=== PATIENT | female | born 1945 | race Caucasian/White ===

== ENCOUNTER 2019-07-15 12:09 | Inpatient (IN) | payer MEDICARE, OTHER ==
[2019-07-15] MEDS ORDERED: Albuterol/Ipratropium NEB.SOL* Albuterol 2.5 MG/Ipratropium 0.5 MG 3 ML INH ONE (12:38)
--- NOTE | 2019-07-15 12:44 | ED ---
Respiratory - HPI Summary HPI Summary: 73-year-old female with a history of asthma presenting with worsening cough, congestion and feeling unwell. Patient states on July 05, she had a cough that has become more productive since Sunday. She also reports myalgias secondary to her cough. Additionally reports fevers at home, chills and sweats. She felt short of breath yesterday, tried her nebulizer. Of note patient had recent travel to [place] and [employer], patient returned on the . She denies sick contacts at that time. Patient also reports some hallucinations at night thinking she was someplace that she wasn't, denies current hallucinations. Patient has past medical history of hypertension. - History of Current Complaint Stated Complaint: GENERAL Time Seen by Provider: 07/15/19 12:13 Hx Obtained From: Patient Onset/Duration: Lasting Days Timing: Constant Character: Cough (Productive) Associated Signs and Symptoms: Fever, SOB, Chills, Diaphoresis, Nasal Congestion - Allergy/Home Medications Allergies/Adverse Reactions: Allergies Allergy/AdvReac Type Severity Reaction Status Date / Time codeine Allergy Severe Airway Verified 07/15/19 13:03 Obstruction erythromycin base AdvReac Vomiting Verified 07/15/19 13:03 polymyxin B AdvReac Swelling Verified 07/15/19 13:03 trimethoprim AdvReac Swelling Verified 07/15/19 13:03 Home Medications: Home Medications Simvastatin [Zocor 40 MG (NF)] 20 mg PO QPM 02/29/16 [History Confirmed 07/15/19 ] Adapalene 0.1% CREAM (NF) [Differin 0.1 % CREAM (NF)] 0.1 % EX BEDTIME PRN 05/22 [History Confirmed 07/15/19] Beclomethasone 80 MCG MDI(NF) [Qvar 80 MCG MDI(NF)] 1 puff INH BID 05/22/18 [ History Confirmed 07/15/19] Beclomethasone Dipropionate [Qnasl] 80 mcg NA BID 05/22/18 [History Confirmed ] Cholecalciferol (Vitamin D3) [Vitamin D3] 1,000 unit PO DAILY 05/22/18 [History Confirmed 07/15/19] Cyclobenzaprine HCl 10 mg PO DAILY PRN 05/22/18 [History Confirmed 07/15/19] Hydrochlorothiazide TAB* [Hydrodiuril TAB*] 25 mg PO DAILY 05/22/18 [History Confirmed 07/15/19] Metformin HCl [Metformin HCl ER] 500 mg PO BID 05/22/18 [History Confirmed 07/14] Omeprazole 20 mg PO DAILY 05/22/18 [History Confirmed 07/15/19] Diclofenac Sodium 20 - 40 drop TOPICAL BID PRN 07/15/19 [History Confirmed 07/14] EPINEPHrine [Epipen Jr] 0.15 mg IM ONCE PRN 07/15/19 [History Confirmed 07/15/19 ] Gabapentin CAP(*) [Neurontin 300 CAP(*)] 300 mg PO BID 07/15/19 [History Confirmed 07/15/19] LevoCETirizine TAB (NF) [Xyzal TAB (NF)] 5 mg PO DAILY 07/15/19 [History Confirmed 07/15/19] Olopatadine 0.2% (NF) [Pataday 0.2% (NF)] 1 - 2 drop BOTH EYES BID PRN 07/15/19 [History Confirmed 07/15/19] Scopolamine 1.5 mg* PATCH* [Transderm-Scop 1.5 mg Patch*] 1 patch TRANSDERM Q72H 07/15/19 [History Confirmed 07/15/19] lisinopriL [Lisinopril] 40 mg PO DAILY 07/15/19 [History Confirmed 07/15/19] metroNIDAZOLE [Metronidazole 0.75 % gel] 1 applic TOPICAL DAILY 07/15/19 [ History Confirmed 07/15/19] PMH/Surg Hx/FS Hx/Imm Hx Endocrine/Hematology History: Denies: Hx Diabetes Cardiovascular History: Reports: Hx Hypertension Denies: Hx Pacemaker/ICD Respiratory History: Reports: Hx Asthma History: Denies: Hx Dialysis, Hx Renal Disease Sensory History: Denies: Hx Hearing Aid Psychiatric History: Denies: Hx Panic Disorder - Surgical History Surgery Procedure, Year, and Place: TIBIAL PLATEAU FX - Lt - ALL HARDWARE REMOVED. Rt ARM - EXTERNAL FIXATION - ALL HARDWARE REMOVED. HYSTERECTOMY. BONE SPURS REMOVED C5-C7. 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 (-) Distressed Skin: Warm, Dry HENT: Normocephalic; Atraumatic Eyes: Conjunctiva normal Neck: Musculoskeletal ROM normal neck. (-) JVD, (-) Stridor, (-) Nuchal rigidity Cardio: Rhythm regular, rate tachycardic, Heart sounds normal; Intact distal pulses; Radial pulses are 2+ and symmetric. (-) Murmur Pulmonary/Chest wall: +bibasilar rhonchi, Effort normal. (-) Respiratory distress, (-) Wheezes, (-) Rales Abd: Soft, (-) tenderness, (-) Distension, (-) Guarding, (-) Rebound Musculoskeletal: (-) Edema Neuro: Alert, Oriented x3 Psych: Mood and affect Normal Triage Information Reviewed: Yes Vital Signs Reviewed: Yes Procedures - Sedation Patient Received Moderate/Deep Sedation with Procedure: No Diagnostics - Laboratory Result Diagrams: 07/15/19 13:20 07/15/19 13:20 Lab Statement: Any lab studies that have been ordered have been reviewed, and results considered in the medical decision making process. - Radiology Chest x-ray Radiology Interpretation Completed By: Radiologist Summary of Radiographic Findings: Low lung volumes with hazy perihilar airspace opacification. Consider further evaluation with chest CT. ED physician has reviewed this report. Disposition - Course Course Of Treatment: 73 y/o F w hx of asthma p/w cough, fevers. - exam w well- appearing female, no acute distress. Lungs with mild bibasilar rhonchi. 93% on room air. Chest x-ray showing bibasilar opacities. Labs notable for no leukocytosis. Given travel history, concern for possible exposure to COVID 19 virus. - [facility] Admit to hospital. D/w infection control and ID who recommend COVID testing given travel history. - regarding episode of AMS likely in setting of fever, GCS 15 here - Diagnoses Provider Diagnoses: Pneumonia, Asthma - Physician Notifications Discussed Care Of Patient With: Neena Alvarenga Time Discussed With Above Provider: 14:08 - Spoke with Dr. Alvarenga who will admit the patient. Discharge ED - Sign-Out/Discharge Documenting (check all that apply): Patient Departure - Discharge Plan Condition: Stable Disposition: ADMITTED TO [facility] - Billing Disposition and Condition Condition: STABLE Disposition: Admitted to [facility] - Attestation Statements Document Initiated by Scribe: Yes Documenting Scribe: Sonja Olivera Provider For Whom Bryant is Documenting (Include Credential): Yarelis Roth MD Scribe Attestation: Sonja Burgess, scribed for Yarelis Roth MD on 07/15/19 at 1619. Scribe Documentation Reviewed: Yes Provider Attestation: The documentation as recorded by the Sonja winslow accurately reflects the service I personally performed and the decisions made by Yarelis oropeza MD Status of Scribe Document: Viewed
[2019-07-15 13:38] LABS: Hematocrit 43 % (35-47); Mean Corpuscular HGB Conc 35 g/dL (31-36); Mean Corpuscular Hemoglobin 30 pg (27-31); Mean Corpuscular Volume 86 fL (80-97); Platelet Count 238 10^3/uL (150-450); Red Blood Count 4.97 10^6 /uL (3.70-4.87); Red Cell Distribution Width 13 % (10-15)
[2019-07-15 13:46] LABS: Influenza A Molecular Negative (Negative); Influenza B Molecular Negative (Negative)
[2019-07-15] MEDS ORDERED: Levofloxacin 750 MG IVPREMIX(* 750 MG/150 ML BAG IVPB ONE (13:47)
[2019-07-15 13:58] LABS: Albumin 4.2 g/dL (3.2-5.2); Albumin/Globulin Ratio 1.4 (1-3); Calcium 9.6 mg/dL (8.6-10.3); EGFR African American 66.1 (>60); EGFR Non-African American 54.7 (>60); Globulin 3.1 g/dL (2-4); Potassium 3.5 mmol/L (3.5-5.0); Total Bilirubin 1.1 mg/dL (0.2-1.0); Total Protein 7.3 g/dL (6.4-8.9)
[2019-07-15 14:27] LABS: ABS Eosinophils 0.1 10^3/ul (0-0.6); ABS Lymphocytes 2.6 10^3/ul (1.0-4.8); ABS Monocytes 0.9 10^3/ul (0-0.8); ABS Neutrophils 3.3 10^3/ul (1.5-7.7); Eosinophil % 1.8 %; Lymphocyte % 37.3 %; Nucleated Red Blood Cells % 0.1
[2019-07-15] MEDS ORDERED: Cyclobenzaprine TAB* 10 MG PO PRN (15:10)
[2019-07-15] MEDS ORDERED: Labetalol IV* 5 MG/ML 20 ML VIAL IV PUSH ONE (15:14)
--- NOTE | 2019-07-15 15:14 | HP ---
History of Present Illness - History of Present Illness Reason for Visit: Cough and fever History of Present Illness: Aurelia Pedroza is a 73 y/o female with history of asthma, HTN, DM, post nasal drip, presenting with fever and worsening cough for 10 days. She came back from a trip to [facility] and [facility] on Jun 20. She mainly spent time with a group of people hiking throughout [place], and she stayed in [facility] briefly for 3 days before taking the flight back to [place]. She started to have bad post nasal drip as well as productive cough since Jul 05. She had some fever and chills in the past 5 days, but she didn't measure. She did have some muscle ache and some headache today due to stuffed nose. She denied SOB, denied abdominal pain, diarrhea. She contacted her PCP, and tried nasal spray and Mucinex but not worsening. She called her friend yesterday, who noted she was coughing badly over phone, therefore advised her to come to hospital. In ED, her sat is 96% under RA. She was given one dose of levofloxacin in ED. She was placed in negative pressure room, COVID-19 and respiratory virus was sent as per protocol. - Past Medical History Past Medical History: 1. DM on metformin only 2. GERD 3. Asthma 4. hypertension 5. Post nasal drip - Past Surgical History Past Surgical History: 1. Tibial plateau fracture 2. right arm external fixation 3. Hysterectomy 4. C5-C7 bone spurs removal - Past Family History Past Family History: Family history of arthritis, hypertension, no particular - Past Social History Past Social History: Patient lives alone. She has some contact with her friend and neighbour after coming back. Non smoker. Occ Etoh use. Patient's health care proxy would be Karo Husseni. She would like to be full code for this admission. Medications: Home Medications Medication Instructions Recorded Confirmed Type Simvastatin [Zocor 40 MG (NF)] 20 mg PO QPM 02/29/16 07/15/19 History Adapalene 0.1% CREAM (NF) 0.1 % EX BEDTIME PRN 05/22/18 07/15/19 History [Differin 0.1 % CREAM (NF)] Beclomethasone 80 MCG MDI(NF) 1 puff INH BID 05/22/18 07/15/19 History [Qvar 80 MCG MDI(NF)] Beclomethasone Dipropionate [Qnasl] 80 mcg NA BID 05/22/18 07/15/19 History Cholecalciferol (Vitamin D3) 1,000 unit PO DAILY 05/22/18 07/15/19 History [Vitamin D3] Cyclobenzaprine HCl 10 mg PO DAILY PRN 05/22/18 07/15/19 History Hydrochlorothiazide TAB* 25 mg PO DAILY 05/22/18 07/15/19 History [Hydrodiuril TAB*] Metformin HCl [Metformin HCl ER] 500 mg PO BID 05/22/18 07/15/19 History Omeprazole 20 mg PO DAILY 05/22/18 07/15/19 History Diclofenac Sodium 20 - 40 drop TOPICAL BID PRN 07/15/19 07/15/19 History EPINEPHrine [Epipen Jr] 0.15 mg IM ONCE PRN 07/15/19 07/15/19 History Gabapentin CAP(*) [Neurontin 300 300 mg PO BID 07/15/19 07/15/19 History CAP(*)] LevoCETirizine TAB (NF) [Xyzal TAB 5 mg PO DAILY 07/15/19 07/15/19 History (NF)] Olopatadine 0.2% (NF) [Pataday 1 - 2 drop BOTH EYES BID PRN 07/15/19 07/15/19 History 0.2% (NF)] Scopolamine 1.5 mg* PATCH* 1 patch TRANSDERM Q72H 07/15/19 07/15/19 History [Transderm-Scop 1.5 mg Patch*] lisinopriL [Lisinopril] 40 mg PO DAILY 07/15/19 07/15/19 History metroNIDAZOLE [Metronidazole 0.75 1 applic TOPICAL DAILY 07/15/19 07/15/19 History % gel] Allergies/Adverse Reactions: Allergies Allergy/AdvReac Type Severity Reaction Status Date / Time codeine Allergy Severe Airway Verified 07/15/19 13:03 Obstruction erythromycin base AdvReac Vomiting Verified 07/15/19 13:03 polymyxin B AdvReac Swelling Verified 07/15/19 13:03 trimethoprim AdvReac Swelling Verified 07/15/19 13:03 Review of Systems - Review of Systems Constitutional: Positive: Fever, Chills. Negative: Sweats, Weakness, Malaise, Other Eyes: Negative: Pain, Vision Change, Conjunctivae Inflammation, Eyelid Inflammation, Redness, Other ENT: Positive: Throat Pain. Negative: Ear Pain, Ear Discharge, Nose Pain, Nose Discharge, Nose Congestion, Mouth Pain, Mouth Swelling, Throat Swelling, Other Respiratory: Positive: Cough, Wheezing. Negative: Dry, Shortness of Breath, Hemoptysis, SOB with Excertion, Pleuritic Pain, Sputum Cardiovascular: Negative: Chest Pain, Palpitations, Orthopnea, Paroxysmal Noc. Dyspnea, Edema, Light Headedness, Other Gastrointestinal: Negative: Nausea, Vomiting, Abdominal Pain, Diarrhea, Constipation, Melena, Hematochezia, Other Genitourinary: Negative: Dysuria, Frequency, Incontinence, Hematuria, Retention , Other Musculoskeletal: Negative: Neck Pain, Shoulder Pain, Arm Pain, Back Pain, Hand Pain, Leg Pain, Foot Pain, Other Skin: Negative: Rash, Lesions, Geovani, Bruising, Other Neurological/Mental Status: Negative: Weakness, Numbness, Incoordination, Change in Speech, Confusion, Seizures, Other Exam Vital Signs: Vital Signs (72 hours) 07/15/19 07/15/19 07/15/19 12:40 12:50 12:52 Temperature 98.3 F Pulse Rate 100 107 Respiratory 20 17 16 Rate Blood Pressure 155/101 155/101 (mmHg) O2 Sat by Pulse 93 93 Oximetry 07/15/19 07/15/19 07/15/19 13:00 13:15 13:24 Temperature Pulse Rate 102 102 95 Respiratory 19 31 13 Rate Blood Pressure 172/98 (mmHg) O2 Sat by Pulse 93 94 98 Oximetry 07/15/19 07/15/19 13:53 14:00 Temperature Pulse Rate 89 93 Respiratory 16 30 Rate Blood Pressure 217/179 (mmHg) O2 Sat by Pulse 96 93 Oximetry Exam: GEN: comfortable sitting on the stregther, NAD HEENT: erythematous pharynx, tonsils not enlarged. Cardiac: S1S2, no murmur Lung: Occasional wheezes. rhonchis heard, clear in general. Abdomen: soft, non tender, BS+ Extremity: no edema, no cyanosis. Neuro: alert and oriented x4. No neurological deficit. Result Diagrams: 07/15/19 13:20 07/15/19 13:20 Diagnostic Imaging: CXR: hazy perihilar airspace opacifications. Assessment/Plan - Assessment/Plan Assessment: Aurelia Pedroza is a 73 y/o female with history of asthma, HTN, DM, post nasal drip, presenting with fever and worsening cough for 10 days duration after a recent travel to [place] and [place], she was found to have perihilar infiltrate in CXR which indicating possible pneumonia. Plan: Patient presented with fever, myalgia,worsening cough with recent travel history to [place] and [place], she will be admitted to negative pressure room in ICU due to concern of COVID-19 with her recent travel history. Case was discussed with infectious disease physician in ED, she met the criteria for COVID-19 testing. Airborne precaution will be administered for this patient. Telemetry needed in view of her hypertensive urgency. 1. Pneumonia - COVID-19 and respiratory virus panel sent out in ED - start IV ceftriaxone and azithromycin - blood cs sent - urine legionella, strep pneumo pending 2. Hypertensive urgency - restart lisinopril and hydrocholorathiazide - iv labetalol prn if BP>180mmhg - check EKG 3. Mild creatinine increase - likely dehydration - IV NS 1L for now 4. Asthma, post nasal drip - not in exacerbation - continue Duoneb, no steroid needed - flonase - symptomatic tx 5. DM - hold off metformin for now - glucose monitoring 5. DVT prophylaxis - ambulatory 6. Full code Attestation Documenting Resident: Jaclyn River Supervising Physician: Francy Mccann Attestation: This service has been performed in part by a resident under the direction of a teaching physician.I, Francy Mccann, performed the service, or was physically present during the critical, or valero portions of the service, furnished by the resident. I participated in the management of the patient.
[2019-07-15] MEDS ORDERED: Albuterol/Ipratropium NEB.SOL* Albuterol 2.5 MG/Ipratropium 0.5 MG 3 ML INH PRN (15:19)
[2019-07-15] MEDS ORDERED: NS 0.9% 1000 ML** 1,000 ML IV SCH (15:30)
[2019-07-15] MEDS: Enoxaparin(*) 40 MG/0.4 ML SYR SUBCUT SCH (17:19)
[2019-07-15] MEDS: metFORMIN* 500 MG TAB PO SCH (17:19)
[2019-07-15] MEDS: guaiFENesin ER TAB 600 MG PO SCH (19:59)
[2019-07-15] MEDS: Gabapentin CAP(*) 300 MG PO SCH (19:59)
[2019-07-15] MEDS: Docusate CAP* 100 MG PO SCH (19:59)
[2019-07-15] MEDS: Mometasone/Formoter 200/5 MDI INH SCH (20:00)
[2019-07-15] MEDS: Ondansetron INJ* 2 MG/ML VIAL IV PRN (20:21)
[2019-07-15 22:38] LABS: Urine Appearance Cloudy; Urine Bilirubin Negative (Negative); Urine Blood Negative (Negative); Urine Color Yellow; Urine Glucose Negative (Negative); Urine Ketones Negative (Negative); Urine Nitrite Negative (Negative); Urine Protein Negative (Negative); Urine Urobilinogen Negative (Negative)
[2019-07-16 07:10] LABS: ABS Eosinophils 0.2 10^3/ul (0-0.6); ABS Lymphocytes 3.2 10^3/ul (1.0-4.8); ABS Monocytes 0.8 10^3/ul (0-0.8); Eosinophil % 3.3 %; Hematocrit 38 % (35-47); Hemoglobin 13.3 g/dL (12.0-16.0); Mean Corpuscular HGB Conc 35 g/dL (31-36); Mean Corpuscular Hemoglobin 30 pg (27-31); Mean Corpuscular Volume 86 fL (80-97); Mean Platelet Volume 8.6 fL (7.4-10.4); Nucleated Red Blood Cells % 0.3; Platelet Count 207 10^3/uL (150-450); Red Blood Count 4.47 10^6 /uL (3.70-4.87); Red Cell Distribution Width 13 % (10-15); White Blood Count 7.3 10^3/uL (3.5-10.8)
[2019-07-16 07:26] LABS: C Reactive Protein 33.26 mg/L (<8.01); Calcium 8.5 mg/dL (8.6-10.3); EGFR African American 83.2 (>60); EGFR Non-African American 68.7 (>60); Potassium 3.5 mmol/L (3.5-5.0)
[2019-07-16] MEDS: Mometasone/Formoter 200/5 MDI INH SCH ×2 (09:07→21:10)
[2019-07-16] MEDS: Fluticasone NASAL SPRAY 50MCG* 16 gm SPRAY BTL BOTH NARES SCH (09:08)
[2019-07-16] MEDS: Lisinopril TAB* 10 MG PO SCH (09:12)
[2019-07-16] MEDS: Pantoprazole TAB * 40 MG TAB PO SCH (09:16)
[2019-07-16] MEDS: Hydrochlorothiazide TAB* 25 MG PO SCH (09:16)
[2019-07-16] MEDS: metFORMIN* 500 MG TAB PO SCH ×2 (09:16→16:02)
[2019-07-16] MEDS: guaiFENesin ER TAB 600 MG PO SCH ×2 (09:16→21:09)
[2019-07-16] MEDS: Gabapentin CAP(*) 300 MG PO SCH ×2 (09:17→21:09)
[2019-07-16] MEDS: Docusate CAP* 100 MG PO SCH ×2 (09:18→21:10)
[2019-07-16] MEDS ORDERED: Albuterol 2.5 MG/3 ML NEB.SOL* (0.083%) INH SCH (13:00)
[2019-07-16] MEDS: methylPREDNISolone SOD 40 MG* 1 ML VIAL IV SCH (13:13)
[2019-07-16] MEDS: Ondansetron INJ* 2 MG/ML VIAL IV PRN (15:06)
[2019-07-16] MEDS ORDERED: Azithromycin 500 mg/250 ml NS 500 MG/250 ML BAG IVPB ONE (15:13)
[2019-07-16] MEDS: cefTRIAXone(*) 1 GM in NS 0.9% 50 ML* 50 ML IVPB SCH (16:02)
[2019-07-16] MEDS: Enoxaparin(*) 40 MG/0.4 ML SYR SUBCUT SCH (16:02)
--- NOTE | 2019-07-16 17:38 | PN ---
Progress Note - Progress Note Date of Service: 07/16/19 Note: Progress Note -- Critical Care 24 hour events/significant events: -admitted to ICU for contact / airborne for possible COVID-19 infection given high risk features -overnight has required intermittnet NC, currnetly on RA -BP stable, HR stable -she states some SOB; cough+, no sputum now -feels well otherwise, no other complaints -exam with diffuse wheezing -remains on airborne and contact; pending still COVID PCR testing -tolerating po intake; otherwise feels relatively ok ROS: negative except for pertinent positives mentioned above Tele: NSR Vitals: Vital Signs Temp 98.1 F 07/16/19 16:04 Pulse 71 07/16/19 16:00 Resp 20 07/16/19 16:00 BP 127/53 07/16/19 16:00 Pulse Ox 97 07/16/19 16:00 Intake & Output 07/15/19 07/16/19 07/16/19 18:59 06:59 18:59 Intake Total 150 1803 960 Output Total 850 500 Balance 150 953 460 Weight 97.568 kg Intake: IV Fluids 150 1323 NS (0.9%) 1323 Oral 480 960 Output: Urine 850 500 Other: # Voids 1 O2/Vent: RA Infusions: heplock Medications: Acetaminophen (Tylenol Tab*) 650 mg PO Q6H PRN PRN Reason: PAIN - MILD Albuterol (Ventolin 2.5 Mg/3 Ml Neb.Avelina*) 2.5 mg INH Q4H [facility] Cyclobenzaprine HCl (Flexeril Tab*) 10 mg PO DAILY PRN PRN Reason: Muscle spasm Docusate Sodium (Colace Cap*) 100 mg PO BID [facility] Last Admin: 07/16/19 09:18 Dose: Not Given Enoxaparin Sodium (Lovenox(*)) 40 mg SUBCUT Q24H [facility] Last Admin: 07/16/19 16:02 Dose: 40 mg Fluticasone Propionate (Flonase Nasal [place] 50mcg*) 2 spray BOTH NARES DAILY [facility] Last Admin: 07/16/19 09:08 Dose: 2 spray Gabapentin (Neurontin Cap(*)) 300 mg PO BID [facility] Last Admin: 07/16/19 09:17 Dose: 300 mg Guaifenesin (Mucinex*) 600 mg PO BID [facility] Last Admin: 07/16/19 09:16 Dose: 600 mg Hydrochlorothiazide (Hydrodiuril Tab*) 25 mg PO DAILY [facility] Last Admin: 07/16/19 09:16 Dose: 25 mg Ceftriaxone Sodium 1 gm/ (Sodium Chloride) 50 mls @ 100 mls/hr IVPB Q24H [facility] Last Admin: 07/16/19 16:02 Dose: 100 mls/hr Lisinopril (Prinivil Tab*) 40 mg PO DAILY [facility] Last Admin: 07/16/19 09:12 Dose: 40 mg Metformin HCl (Glucophage*) 500 mg PO 0800,1700 [facility] Last Admin: 07/16/19 16:02 Dose: 500 mg Methylprednisolone Sodium Succinate (Solu-Medrol 40 Mg) 40 mg IV Q12H [facility] Last Admin: 07/16/19 13:13 Dose: 40 mg Mometasone Furoate/Formoterol Fumar (Dulera 200/5 Mdi*) 2 puff INH BID [facility] Last Admin: 07/16/19 09:07 Dose: 2 puff Ondansetron HCl (Zofran Inj*) 4 mg IV Q6H PRN PRN Reason: NAUSEA Last Admin: 07/16/19 15:06 Dose: 4 mg Pantoprazole Sodium (Protonix Tab*) 40 mg PO DAILY [facility] Last Admin: 07/16/19 09:16 Dose: 40 mg Physical Exam: Constitutional: awake, alert, no distress, no diaphoresis Head: normocephalic, atraumatic Eyes: no pallor, no icterus ENT: moist mucous membranes Neck: soft, supple, no jvd, no stridor CVS: normal rate, regular, no murmur Chest/Resp: bilateral air entry, no rhales, Bilateral diffuse wheeze+, no rhonchi, no acc muscle use Abdomen/GI: soft, nontender, nondistended, BS+ Ext/Msk: warm, pulses+, no edema Skin: intact, warm Neuro: awake, alert, orientedx3, moving all extremities, no gross focal deficit Psych: normal affect Labs: Laboratory Results - last 24 hr 07/15/19 07/15/19 07/16/19 13:20 15:26 06:00 WBC RBC Hgb Hct MCV MCH MCHC RDW Plt Count MPV Neut % (Auto) Lymph % (Auto) Burt % (Auto) Eos % (Auto) Baso % (Auto) Absolute Neuts (auto) Absolute Lymphs (auto) Absolute Monos (auto) Absolute Eos (auto) Absolute Basos (auto) Absolute Nucleated RBC Nucleated RBC % Sodium 135 Potassium 3.5 Chloride 101 Carbon Dioxide 23 Anion Gap 11 BUN 18 Creatinine 0.82 Est GFR ( Amer) 83.2 Est GFR (Non-Af Amer) 68.7 BUN/Creatinine Ratio 22.0 H Glucose 138 H Hemoglobin A1c 6.7 H Calcium 8.5 L C-Reactive Protein 33.26 H Urine Color Yellow Urine Appearance Cloudy Urine pH 5.0 Ur Specific [place] 1.010 Urine Protein Negative Urine Ketones Negative Urine Blood Negative Urine Nitrate Negative Urine Bilirubin Negative Urine Urobilinogen Negative Ur Leukocyte Esterase Negative Urine Glucose Negative 07/16/19 06:50 WBC 7.3 RBC 4.47 Hgb 13.3 Hct 38 MCV 86 MCH 30 MCHC 35 RDW 13 Plt Count 207 MPV 8.6 Neut % (Auto) 40.7 Lymph % (Auto) 44.0 Burt % (Auto) 11.5 Eos % (Auto) 3.3 Baso % (Auto) 0.5 Absolute Neuts (auto) 3.0 Absolute Lymphs (auto) 3.2 Absolute Monos (auto) 0.8 Absolute Eos (auto) 0.2 Absolute Basos (auto) 0.0 Absolute Nucleated RBC 0.0 Nucleated RBC % 0.3 Sodium Potassium Chloride Carbon Dioxide Anion Gap BUN Creatinine Est GFR ( Amer) Est GFR (Non-Af Amer) BUN/Creatinine Ratio Glucose Hemoglobin A1c Calcium C-Reactive Protein Urine Color Urine Appearance Urine pH Ur Specific [place] Urine Protein Urine Ketones Urine Blood Urine Nitrate Urine Bilirubin Urine Urobilinogen Ur Leukocyte Esterase Urine Glucose Imaging: CXR 07/15 - no acute infiltrates noted; some question of perihilar infiltrate but similar as yesterday Assessment: 73y F w/pmhx of asthma, HTN, DM; presented with 10 days of fever, cough, sputum, headaches+, some generalized aches+. history relative for arrival from [place] 15 days before that. -Acute asthma exaccerbation -Hypoxia -Febrile illness, r/o viral respiratory pathology; r/o COVID19 infection HTN DM Plan: Neuro- -alert, awake ; Delirium prec; avoid BDZ CVS- -BP and HR Stable -HTN - cont hctz, lisinopril -given IVF yesterday, now on heplock -Maintain MAP>65 Resp- -on RA now, was on NC 1-2L, but off; last sats 92-98%, RR teens -bilateral diffuse wheezing+, no acc muscle use -start solumedrol 40mg iv bid and change nebs to q4h albuterol RTC -sputum culture if any -new SHIVANI guidelines changed to droplet and contact (unless patient is aerosolizing) -Wean Fio2 to keep sat>92% -Bronchodilators PRN ID- afebrile. wbc normal. -pending viral pathogen panel and COVID testing -noted CRP 33; no lymphopenia noted; no thrombocytopenia -on empiric CAP coverage with CTX/Azithromycin (day#2) GI- -Nutrition: cardiac diet/diabetic diet -GI prophylaxis - start h2b while on steroids Renal- -strict I/O, replete to keep K>4, Mg>2 -plata as indicated Heme- hg stable, plt stable Endo-Maintain BG<200, insulin protocol as needed; cont metformin Musculsk- pressure ulcer prophylaxis. oob to chair as tolerated, ambulate as tolerated Wounds- none Nutrition- diabetic/cardiac diet DVT prophylaxis: none indicated GI prophylaxis: h2b Central Line: no Arterial Line: no Plata Cathetor: no Disposition: medical floor; pending covid testing Patient clinical status: guarded Code Status: full code discussed current plan with patient. she is very pleasant. Total Critical Care time is 35 minutes, excluding procedures/teaching Km Villalta MD Mock Up Builder (Electronically Signed)
--- NOTE | 2019-07-16 17:48 | CONSULT ---
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 He was a witnessed collapse by house keeper, who started CPR, called EMS, state troopers arrive and gave 1 shock and continued CPR, EMS arrived and cont CPR with 2 epi with ROSC. Brought to ER and intubated. EKG demonstrated NSR with inferior ST elevations. STEMI called, taken to photographic laboratory technician, found to have occluded mid-RCA. PCI performed with 3 stents, discussed intraop findings with cardiology , some distal disease still present in RCA, no sig disease in LAD at this time. Given brillinta/asa. He is now in ICU, intubated, did not wake post code, on propofol now, BP stable. Given criteria for cardiac arrest he is started on Therapeutic hypothermia protocol. CT brain done showing no acute findings, areas of encephalomalacia+. 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 Allergies: NKDA Home Medications: Simvastatin [Zocor 40 MG (NF)] 20 mg PO QPM 02/29/16 [History Confirmed 07/15/19 ] Adapalene 0.1% CREAM (NF) [Differin 0.1 % CREAM (NF)] 0.1 % EX BEDTIME PRN 05/22 [History Confirmed 07/15/19] Beclomethasone 80 MCG MDI(NF) [Qvar 80 MCG MDI(NF)] 1 puff INH BID 05/22/18 [ History Confirmed 07/15/19] Beclomethasone Dipropionate [Qnasl] 80 mcg NA BID 05/22/18 [History Confirmed ] Cholecalciferol (Vitamin D3) [Vitamin D3] 1,000 unit PO DAILY 05/22/18 [History Confirmed 07/15/19] Cyclobenzaprine HCl 10 mg PO DAILY PRN 05/22/18 [History Confirmed 07/15/19] Hydrochlorothiazide TAB* [Hydrodiuril TAB*] 25 mg PO DAILY 05/22/18 [History Confirmed 07/15/19] Metformin HCl [Metformin HCl ER] 500 mg PO BID 05/22/18 [History Confirmed 07/14] Omeprazole 20 mg PO DAILY 05/22/18 [History Confirmed 07/15/19] Diclofenac Sodium 20 - 40 drop TOPICAL BID PRN 07/15/19 [History Confirmed 07/14] EPINEPHrine [Epipen Jr] 0.15 mg IM ONCE PRN 07/15/19 [History Confirmed 07/15/19 ] Gabapentin CAP(*) [Neurontin 300 CAP(*)] 300 mg PO BID 07/15/19 [History Confirmed 07/15/19] LevoCETirizine TAB (NF) [Xyzal TAB (NF)] 5 mg PO DAILY 07/15/19 [History Confirmed 07/15/19] Olopatadine 0.2% (NF) [Pataday 0.2% (NF)] 1 - 2 drop BOTH EYES BID PRN 07/15/19 [History Confirmed 07/15/19] Scopolamine 1.5 mg* PATCH* [Transderm-Scop 1.5 mg Patch*] 1 patch TRANSDERM Q72H 07/15/19 [History Confirmed 07/15/19] lisinopriL [Lisinopril] 40 mg PO DAILY 07/15/19 [History Confirmed 07/15/19] metroNIDAZOLE [Metronidazole 0.75 % gel] 1 applic TOPICAL DAILY 07/15/19 [ History Confirmed 07/15/19] Tele: NSR Vitals: Vital Signs Temp 98.1 F 07/16/19 16:04 Pulse 71 07/16/19 16:00 Resp 20 07/16/19 16:00 BP 127/53 07/16/19 16:00 Pulse Ox 97 07/16/19 16:00 Intake & Output 07/15/19 07/16/19 07/16/19 18:59 06:59 18:59 Intake Total 150 1803 960 Output Total 850 500 Balance 150 953 460 Weight 97.568 kg Intake: IV Fluids 150 1323 NS (0.9%) 1323 Oral 480 960 Output: Urine 850 500 Other: # Voids 1 O2/Vent: AC 14/400/+5/60% Infusions: propofol, +/- levophed, NS infusion Current Medications: Acetaminophen (Tylenol Tab*) 650 mg PO Q6H PRN PRN Reason: PAIN - MILD Albuterol (Ventolin 2.5 Mg/3 Ml Neb.Avelina*) 2.[address] [facility] Cyclobenzaprine HCl (Flexeril Tab*) 10 mg PO DAILY PRN PRN Reason: Muscle spasm Docusate Sodium (Colace Cap*) [address] [facility] Last Admin: 07/16/19 09:18 Dose: Not Given Enoxaparin Sodium (Lovenox(*)) [address] [facility] Last Admin: 07/16/19 16:02 Dose: 40 mg Famotidine (Pepcid Tab*) [address] [facility] Fluticasone Propionate (Flonase Nasal [place] 50mcg*) 2 [address]ES DA[address] [facility] Last Admin: 07/16/19 09:08 Dose: 2 spray Gabapentin (Neurontin Cap(*)) [address] [facility] Last Admin: 07/16/19 09:17 Dose: 300 mg Guaifenesin (Mucinex*) [address] [facility] Last Admin: 07/16/19 09:16 Dose: 600 mg Hydrochlorothiazide (Hydrodiuril Tab*) [address] [facility] Last Admin: 07/16/19 09:16 Dose: 25 mg Ceftriaxone Sodium 1 gm/ (Sodium Chloride) 50 mls @ 100 mls/hr IVPB Q24H [facility] Last Admin: 07/16/19 16:02 Dose: 100 mls/hr Lisinopril (Prinivil Tab*) [address] [facility] Last Admin: 07/16/19 09:12 Dose: 40 mg Metformin HCl (Glucophage*) 500 mg PO 0800,1700 [facility] Last Admin: 07/16/19 16:02 Dose: 500 mg Methylprednisolone Sodium Succinate (Solu-Medrol 40 Mg) [address] [facility] Last Admin: 07/16/19 13:13 Dose: 40 mg Mometasone Furoate/Formoterol Fumar (Dulera 200/5 Mdi*) [address] [facility] Last Admin: 07/16/19 09:07 Dose: 2 puff Ondansetron HCl (Zofran Inj*) 4 mg IV Q6H PRN PRN Reason: NAUSEA Last Admin: 07/16/19 15:06 Dose: 4 mg Pantoprazole Sodium (Protonix Tab*) [address] [facility] Last Admin: 07/16/19 09:16 Dose: 40 mg Physical Exam: Constitutional: intubated, unresponsive, no distress, no diaphoresis Head: normocephalic, atraumatic Eyes: no pallor, no icterus ENT: moist mucous membranes Neck: soft, supple, no jvd CVS: normal rate, regular, no murmur Chest/Resp: bilateral air entry, no rhales, no wheeze, + rhonchi on left, no acc muscle use Abdomen/GI: soft, nondistended, BS+ Ext/Msk: warm, pulses+, no edema Skin: intact, warm Neuro: intubated, unresponsive/sedated, pupils reactive bilaterally, cough+, gag +; limited exam Psych: unable to assess/intubated Labs: Laboratory Results - last 24 hr 07/15/19 07/16/19 07/16/19 15:26 06:00 06:50 WBC 7.3 RBC 4.47 Hgb 13.3 Hct 38 MCV 86 MCH 30 MCHC 35 RDW 13 Plt Count 207 MPV 8.6 Neut % (Auto) 40.7 Lymph % (Auto) 44.0 [place] % (Auto) 11.5 Eos % (Auto) 3.3 Baso % (Auto) 0.5 Absolute Neuts (auto) 3.0 Absolute Lymphs (auto) 3.2 Absolute Monos (auto) 0.8 Absolute Eos (auto) 0.2 Absolute Basos (auto) 0.0 Absolute Nucleated RBC 0.0 Nucleated RBC % 0.3 Sodium 135 Potassium 3.5 Chloride 101 Carbon Dioxide 23 Anion Gap 11 BUN 18 Creatinine 0.82 Est GFR ( Amer) 83.2 Est GFR (Non-Af Amer) 68.7 BUN/Creatinine Ratio 22.0 H Glucose 138 H Calcium 8.5 L C-Reactive Protein 33.26 H Urine Color Yellow Urine Appearance Cloudy Urine pH 5.0 Ur Specific [place] 1.010 Urine Protein Negative Urine Ketones Negative Urine Blood Negative Urine Nitrate Negative Urine Bilirubin Negative Urine Urobilinogen Negative Ur Leukocyte Esterase Negative Urine Glucose Negative Imaging: brain ct 07/15 - no acute findings; encephalomalacia chronic+ cxr 07/15 - ett above nehemias; ogt in place; left sided haziness++ Assessment: 73y M w/pmhx of DM, HTN, WPW, prior history of prostate surgery complicated by 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 He was a witnessed collapse by house keeper, who started CPR, called EMS, state troopers arrive and gave 1 shock and continued CPR, EMS arrived and cont CPR with 2 epi with ROSC. Brought to ER and intubated. EKG demonstrated NSR with inferior ST elevations. STEMI called, taken to photographic laboratory technician, found to have occluded mid-RCA. PCI performed with 3 stents, discussed intraop findings with cardiology , some distal disease still present in RCA, no sig disease in LAD at this time. Given brillinta/asa. He is now in ICU, intubated, did not wake post code, on propofol now, BP stable. Given criteria for cardiac arrest he is started on Therapeutic hypothermia protocol. CT brain done showing no acute findings, areas of encephalomalacia+. -VT/VF out of hospital arrest -STEMI of RCA; s/p PCI x3 to mRCA 07/15 -Acute hypoxix respiratory failure, int 07/15 -SETH -Shock liver -metabolic acidosis -possible aspiration pneumonia of left lung -Encephalopathy -upper GI bleed DM HTN h/o WPW h/o prior Right MCA CVA with left deficit seizure disorder Plan: Neuro- -s/p cardiac arrest, not responsive post ROSC; meets criteria for TTM -brain ct 07/15 - no acute findings; chronic encephalomalacia+ -start TTM, goal temp 33C for now -neuro consult after warming -daily neurochecks -cont propofol for sedation; fentanyl and precedex for shivering -h/o Right MCA CVA - chronic left residual weakness; has contractures of upper ext -seizure disorder - cont lamictal -hold sedatives and other anxiety meds -cont baclofen for spasms -Delirium prec; avoid BDZ CVS- -VT/VF arrest - no further arrhythmias, no antiarrhythmics needs, follow tele -STEMI RCA; s/p PCI - some left over residual disease; cont DAPT/statin -trend trop, ekgs, cks -BP stable, no pressors needed currently -follow urine output, cont IVF -TTE reviewed - thick LV, intact function it appears; no effusion, small cavity ; some mild RV dysfunction noted only -HTN - hold antihypertensives; noted to be on clonidine/coreg/norvasc/ lisinopril at home -h/o WPW - monitoring -Titrate Pressors to Maintain MAP>65 Resp- -intubated on AC 60%; abg reviewed -CXR 07/15 with left sided haziness -possible periarrest aspiration; send sputum cx; start empiric asp abx -abg q6h -cxr tomorrow -no sig secretions -Wean Fio2 to keep sat>92% -Bronchodilators PRN, Aspiration prec, Pulmonary Toilet -VAP bundle ID- afebrile, wbc 16 on arrival. -CXR 07/15 with left haziness+ -high risk for aspiration; will start empiric asp coverage with zosyn (day#1) -sent blood and urine cx as part of sepsis/hypothermia protocol GI- -NPO -coffee ground and dark red from OGT+; will lavage. possible GI bleed from arrest/stress/AC/antiplatelets. -h/o PPI at home; previous PUD? -start PPI infusion -trend h/h q6h Renal- -SETH, suspect this to be from ischemic ATN/hypoperfusion from cardiac arrest -no obstruction, plata in place, making urine -metabolic acidosis+; likely from elevated LA and hypoperfusion; improving, will given 3 Nabicarb pushes -cont IVF NS 125cc/hr; some underfilling of cavity on ECHO -hyperkalemia - last K 5.8; will given bicarb; kayexelate PO q12h x2 doses; follow BMP; calcium gluconate 3gm iv x1 -bmp q4h -strict I/O, replete to keep K>4, Mg>2 -plata as indicated Heme- -hg stable -plt okay -cont DAPT for coronary stents -ptts/inr a few hours after procedure are slightly elevated but no changes to be done; no transfusion indicated. -heparin sq q8h tomorrow to be started once PTT improved Endo- Maintain BG<200, insulin protocol as needed -check tsh and hba1b Musculsk- pressure ulcer prophylaxis. Bedrest. Wounds- none Nutrition- NPO DVT prophylaxis: SCD GI prophylaxis: ppi Central Line: left fem tlc/cooling cath 07/15 Arterial Line: right fem 07/15 Plata Cathetor: yes 07/15 Disposition: Admit to ICU; Expected LOS>2 midnights; Patient requires Critical Care/ICU for cardiac arrest, encephalopathy, stemi, therapeutic hypothermia Patient Clinical Status: guarded, critical Code Status: full code will need to find out if any HCP or next of kin who patient may have assigned to assist in making decisions. Noted that daughter may have been distanced from him for years. Total Critical Care time is 90 minutes, excluding procedures/teaching Km Villalta MD [employer] (Electronically Signed)
[2019-07-16] MEDS: Albuterol 2.5 MG/3 ML NEB.SOL* (0.083%) INH SCH ×2 (19:20→22:56)
[2019-07-16] MEDS: Famotidine TAB* 20 MG PO SCH (21:10)
[2019-07-17] MEDS: methylPREDNISolone SOD 40 MG* 1 ML VIAL IV SCH ×2 (01:39→13:02)
[2019-07-17] MEDS: Albuterol 2.5 MG/3 ML NEB.SOL* (0.083%) INH SCH ×6 (01:41→21:36)
[2019-07-17] MEDS: Pantoprazole TAB * 40 MG TAB PO SCH (08:24)
[2019-07-17] MEDS: Hydrochlorothiazide TAB* 25 MG PO SCH (08:24)
[2019-07-17] MEDS: Gabapentin CAP(*) 300 MG PO SCH ×2 (08:24→20:12)
[2019-07-17] MEDS: Acetaminophen TAB* 325 MG PO PRN (08:25)
[2019-07-17] MEDS: guaiFENesin ER TAB 600 MG PO SCH ×2 (08:25→20:12)
[2019-07-17] MEDS: Docusate CAP* 100 MG PO SCH ×2 (08:25→20:13)
[2019-07-17] MEDS: Lisinopril TAB* 10 MG PO SCH (08:25)
[2019-07-17] MEDS: Famotidine TAB* 20 MG PO SCH ×2 (08:25→20:12)
[2019-07-17] MEDS: metFORMIN* 500 MG TAB PO SCH ×2 (08:26→16:25)
[2019-07-17] MEDS: Fluticasone NASAL SPRAY 50MCG* 16 gm SPRAY BTL BOTH NARES SCH (08:26)
[2019-07-17] MEDS: Mometasone/Formoter 200/5 MDI INH SCH ×2 (08:26→21:36)
--- NOTE | 2019-07-17 11:53 | PN ---
Progress Note - Progress Note Date of Service: 07/17/19 Note: Progress Note -- Critical Care 24 hour events/significant events: -awake, alert, walking around in room, feels better -cough+, no sputum -on intermittent NC overnight 1-2L , currently on RA, sats low 90s, RR teens, speaking full sentences -overnight she has some desaturation while sleeping; no snoring noted or apnic episodes -noted this morning a call from outside lab with humanmetapneumo virus+ on panel ROS: negative except for pertinent positives mentioned above Tele: NSR Vitals: Vital Signs Temp 97.2 F 07/17/19 01:47 Pulse 83 07/17/19 09:00 Resp 33 07/17/19 09:00 BP 128/90 07/17/19 08:22 Pulse Ox 93 07/17/19 09:00 Intake & Output 07/16/19 07/17/19 07/17/19 18:59 06:59 18:59 Intake Total 1440 120 Output Total 500 Balance 940 120 Intake: Oral 1440 120 Output: Urine 500 O2/Vent: RA Infusions: heplock Medications: Acetaminophen (Tylenol Tab*) 650 mg PO Q6H PRN PRN Reason: PAIN - MILD Last Admin: 07/17/19 08:25 Dose: 650 mg Albuterol (Ventolin 2.5 Mg/3 Ml Neb.Avelina*) 2.5 mg INH Q4H [facility]PL[facility] Last Admin: 07/17/19 08:24 Dose: 2.5 mg Cyclobenzaprine HCl (Flexeril Tab*) 10 mg PO DAILY PRN PRN Reason: Muscle spasm Docusate Sodium (Colace Cap*) 100 mg PO BID REPLACED BY [facility] Last Admin: 07/17/19 08:25 Dose: 100 mg Enoxaparin Sodium (Lovenox(*)) 40 mg SUBCUT Q24H REPLACED [facility] Last Admin: 07/16/19 16:02 Dose: 40 mg Famotidine (Pepcid Tab*) 20 mg PO BID REPLACED BY [facility] Last Admin: 07/17/19 08:25 Dose: 20 mg Fluticasone Propionate (Flonase Nasal [place] 50mcg*) 2 spray BOTH NARES DAILY REPLACED BY [facility] Last Admin: 07/17/19 08:26 Dose: 2 spray Gabapentin (Neurontin Cap(*)) 300 mg PO BID REPLACED BY [facility] Last Admin: 07/17/19 08:24 Dose: 300 mg Guaifenesin (Mucinex*) 600 mg PO BID REPLACED BY [facility] Last Admin: 07/17/19 08:25 Dose: 600 mg Hydrochlorothiazide (Hydrodiuril Tab*) 25 mg PO DAILY REPLACED BY [facility] Last Admin: 07/17/19 08:24 Dose: 25 mg Ceftriaxone Sodium 1 gm/ (Sodium Chloride) 50 mls @ 100 mls/hr IVPB Q24H REPLACED [facility] Last Admin: 07/16/19 16:02 Dose: 100 mls/hr Lisinopril (Prinivil Tab*) 40 mg PO DAILY REPLACED BY [facility] Last Admin: 07/17/19 08:25 Dose: 40 mg Metformin HCl (Glucophage*) 500 mg PO 0800,1700 REPLACED BY [facility] Last Admin: 07/17/19 08:26 Dose: 500 mg Methylprednisolone Sodium Succinate (Solu-Medrol 40 Mg) 40 mg IV Q12H REPLACED BY [facility] Last Admin: 07/17/19 01:39 Dose: 40 mg Mometasone Furoate/Formoterol Fumar (Dulera 200/5 Mdi*) 2 puff INH BID REPLACED BY [facility] Last Admin: 07/17/19 08:26 Dose: 2 puff Ondansetron HCl (Zofran Inj*) 4 mg IV Q6H PRN PRN Reason: NAUSEA Last Admin: 07/16/19 15:06 Dose: 4 mg Pantoprazole Sodium (Protonix Tab*) 40 mg PO DAILY REPLACED BY [facility] Last Admin: 07/17/19 08:24 Dose: 40 mg Physical Exam: Constitutional: awake, alert, no distress, no diaphoresis Head: normocephalic, atraumatic Eyes: no pallor, no icterus ENT: moist mucous membranes Neck: soft, supple, no jvd, no stridor CVS: normal rate, regular, no murmur Chest/Resp: bilateral air entry, no rhales, Bilateral diffuse wheeze+ but less than yesterday, no rhonchi, no acc muscle use Abdomen/GI: soft, nontender, nondistended, BS+ Ext/Msk: warm, pulses+, no edema Skin: intact, warm Neuro: awake, alert, orientedx3, moving all extremities, no gross focal deficit Psych: normal affect Labs: none today Imaging: CXR 07/15 - no acute infiltrates noted; some question of perihilar infiltrate but similar as yesterday cxr / - no acute infiltrates Assessment: 73y F w/pmhx of asthma, HTN, DM; presented with 10 days of fever, cough, sputum, headaches+, some generalized aches+. history relative for arrival from [place] 15 days before that. -Acute asthma exaccerbation -Hypoxia -Febrile illness, r/o viral respiratory pathology; r/o COVID19 infection HTN DM Plan: Neuro- -alert, awake ; Delirium prec; avoid BDZ CVS- -BP and HR Stable -HTN - cont hctz, lisinopril -heplock IVF -Maintain MAP>65 Resp- -on RA, sometimes NC, was on NC 1-2L; last sats 92-98%, RR <20 -bilateral diffuse wheezing+, bettter today, no acc muscle use -cont solumedrol 40mg iv bid and nebs to q4h albuterol RTC -sputum culture if any -new SHIVANI guidelines changed to droplet and contact (unless patient is aerosolizing) -RVP with human metapneumovirus+; pending covid19 PCR still -Wean Fio2 to keep sat>92% -Bronchodilators PRN ID- afebrile. wbc normal. -RVP with human metapneumovirus+; pending covid19 PCR still -noted CRP 33; no lymphopenia noted; no thrombocytopenia -on empiric CAP coverage with CTX (day#3), d/c azithro GI- -Nutrition: cardiac diet/diabetic diet -GI prophylaxis - h2b while on steroids Renal- -strict I/O, replete to keep K>4, Mg>2 -plata as indicated Heme- hg stable, plt stable Endo-Maintain BG<200, insulin protocol as needed; cont metformin Musculsk- pressure ulcer prophylaxis. oob to chair as tolerated, ambulate as tolerated Wounds- none Nutrition- diabetic/cardiac diet DVT prophylaxis: enoxaparin GI prophylaxis: h2b Central Line: no Arterial Line: no Plata Cathetor: no Disposition: medical floor; pending covid testing Patient clinical status: guarded Code Status: full code discussed current plan with patient. she is very pleasant. Total Critical Care time is 30 minutes, excluding procedures/teaching Km Villalta MD Faculty Member (Electronically Signed)
[2019-07-17] MEDS: cefTRIAXone(*) 1 GM in NS 0.9% 50 ML* 50 ML IVPB SCH (15:41)
[2019-07-17] MEDS: Ondansetron INJ* 2 MG/ML VIAL IV PRN (15:41)
[2019-07-17] MEDS: Enoxaparin(*) 40 MG/0.4 ML SYR SUBCUT SCH (15:42)
[2019-07-18] MEDS: Albuterol 2.5 MG/3 ML NEB.SOL* (0.083%) INH SCH ×2 (01:30→05:20)
[2019-07-18] MEDS: methylPREDNISolone SOD 40 MG* 1 ML VIAL IV SCH (01:40)
[2019-07-18] MEDS: Mometasone/Formoter 200/5 MDI INH SCH ×2 (05:58→08:38)
[2019-07-18 06:46] LABS: Hematocrit 38 % (35-47); Hemoglobin 13.1 g/dL (12.0-16.0); Mean Corpuscular HGB Conc 35 g/dL (31-36); Mean Corpuscular Hemoglobin 30 pg (27-31); Mean Corpuscular Volume 87 fL (80-97); Platelet Count 255 10^3/uL (150-450); Red Blood Count 4.36 10^6 /uL (3.70-4.87); Red Cell Distribution Width 13 % (10-15); White Blood Count 10.4 10^3/uL (3.5-10.8)
[2019-07-18 06:58] LABS: Albumin/Globulin Ratio 1.4 (1-3); BUN/Creatinine Ratio 31.3 (8-20); Calcium 9.2 mg/dL (8.6-10.3); Globulin 2.9 g/dL (2-4); Indirect Bilirubin 0.6 mg/dL (0.3-1.0); Magnesium 2.1 mg/dL (1.9-2.7); Potassium 3.8 mmol/L (3.5-5.0); Total Bilirubin 0.7 mg/dL (0.2-1.0); Total Protein 6.9 g/dL (6.4-8.9)
[2019-07-18] MEDS ORDERED: Albuterol/Ipratropium NEB.SOL* Albuterol 2.5 MG/Ipratropium 0.5 MG 3 ML INH SCH (07:00)
[2019-07-18 07:30] VITALS: BP 125/44
[2019-07-18] MEDS: guaiFENesin ER TAB 600 MG PO SCH (07:41)
[2019-07-18] MEDS: Acetaminophen TAB* 325 MG PO PRN (07:41)
[2019-07-18] MEDS: metFORMIN* 500 MG TAB PO SCH (07:41)
[2019-07-18] MEDS: Hydrochlorothiazide TAB* 25 MG PO SCH (07:41)
[2019-07-18] MEDS: Famotidine TAB* 20 MG PO SCH (07:41)
[2019-07-18] MEDS: Gabapentin CAP(*) 300 MG PO SCH (07:41)
[2019-07-18] MEDS: Lisinopril TAB* 10 MG PO SCH (07:42)
[2019-07-18] MEDS: Docusate CAP* 100 MG PO SCH (07:45)
[2019-07-18] MEDS: Fluticasone NASAL SPRAY 50MCG* 16 gm SPRAY BTL BOTH NARES SCH (07:49)
--- NOTE | 2019-07-18 07:56 | PN ---
Subjective Date of Service: 07/18/19 Interval History: HD4 on 07/17 73F PMH mod persistent asthma, NIDDM, HTN, CLBP who presented after recent travel with URI sx, asthma exacerbation and found to have CAP. Human metapneumovirus +, being r/o COVID though unlikely given low rates of co infection Transferred off unit with +human metapneumo No acute events VSS, 1 L NC Labs stable This morning, very pleasant and well, off all O2, still some wheezing but much improved with nebs. She has nebulizer at home and albuterol nebs. She is clear on how to use them. She has no CP GI or MSK complaints, she is able to ambulate without SOB Objective Active Medications: Acetaminophen (Tylenol Tab*) 650 mg PO Q6H PRN PRN Reason: PAIN - MILD Last Admin: 07/18/19 07:41 Dose: 650 mg Albuterol/Ipratropium (Duoneb (Albuterol 2.5 Mg/Ipratropium 0.5 Mg)) 1 neb INH [id number] AWAKE [facility] Cyclobenzaprine HCl (Flexeril Tab*) 10 mg PO DAILY PRN PRN Reason: Muscle spasm Docusate Sodium (Colace Cap*) 100 mg PO BID [facility] Last Admin: 07/18/19 07:45 Dose: 100 mg Enoxaparin Sodium (Lovenox(*)) 40 mg SUBCUT Q24H [facility] Last Admin: 07/17/19 15:42 Dose: 40 mg Famotidine (Pepcid Tab*) 20 mg PO BID [facility] Last Admin: 07/18/19 07:41 Dose: 20 mg Fluticasone Propionate (Flonase Nasal [place] 50mcg*) 2 spray BOTH NARES DAILY [facility] Last Admin: 07/18/19 07:49 Dose: 2 spray Gabapentin (Neurontin Cap(*)) 300 mg PO BID [facility] Last Admin: 07/18/19 07:41 Dose: 300 mg Guaifenesin (Mucinex*) 600 mg PO BID [facility] Last Admin: 07/18/19 07:41 Dose: 600 mg Hydrochlorothiazide (Hydrodiuril Tab*) 25 mg PO DAILY [facility] Last Admin: 07/18/19 07:41 Dose: 25 mg Ceftriaxone Sodium 1 gm/ (Sodium Chloride) 50 mls @ 100 mls/hr IVPB Q24H [facility] Last Admin: 07/17/19 15:41 Dose: 100 mls/hr Lisinopril (Prinivil Tab*) 40 mg PO DAILY [facility] Last Admin: 07/18/19 07:42 Dose: 40 mg Metformin HCl (Glucophage*) 500 mg PO 0800,1700 [facility] Last Admin: 07/18/19 07:41 Dose: 500 mg Methylprednisolone Sodium Succinate (Solu-Medrol 40 Mg) 40 mg IV Q12H [facility] Last Admin: 07/18/19 01:40 Dose: 40 mg Mometasone Furoate/Formoterol Fumar (Dulera 200/5 Mdi*) 2 puff INH BID [facility] Last Admin: 07/18/19 05:58 Dose: 2 puff Ondansetron HCl (Zofran Inj*) 4 mg IV Q6H PRN PRN Reason: NAUSEA Last Admin: 07/17/19 15:41 Dose: 4 mg Vital Signs - 8 hr 07/18/19 07/18/19 07/18/19 01:30 03:07 05:21 Temperature 97.4 F Pulse Rate 82 80 84 Respiratory 16 20 14 Rate Blood Pressure 125/44 (mmHg) O2 Sat by Pulse 98 99 98 Oximetry 07/18/19 07:41 Temperature Pulse Rate Respiratory 17 Rate Blood Pressure (mmHg) O2 Sat by Pulse Oximetry Oxygen Devices in Use Now: Nasal Cannula Appearance: Pleasant woman in NAD Eyes: No Scleral Icterus, PERRLA Ears/Nose/Mouth/Throat: NL Teeth, Lips, Gums, Clear Oropharnyx Neck: NL Appearance and Movements; NL JVP, Trachea Midline Respiratory: Symmetrical Chest Expansion and Respiratory Effort, - - E wheeze, mild Cardiovascular: NL Sounds; No Murmurs; No JVD, RRR Abdominal: NL Sounds; No Tenderness; No Distention, No Hepatosplenomegaly Lymphatic: No Cervical Adenopathy Extremities: No Edema Skin: No Rash or Ulcers Neurological: Alert and Oriented x 3 Result Diagrams: 07/18/19 06:18 07/18/19 06:18 Microbiology and Other Data: Microbiology 07/15/19 16:10 Aerobic Blood Culture - Preliminary Blood Venous No Growth Day 2 Anaerobic Blood Culture - Preliminary No Growth Day 2 07/15/19 14:35 Aerobic Blood Culture - Preliminary Blood Venous No Growth Day 2 Anaerobic Blood Culture - Preliminary No Growth Day 2 07/15/19 14:29 Legionella Urinary Antigen - Final Urine Negative Legionella Antigen Streptococcus pneumoniae Ag Screen - Final Negative S. pneumo Antigen Diagnostic Imaging: CXR: hazy perihilar airspace opacifications. Assess/Plan/Problems-Billing Assessment: 73F PMH mod persistent asthma, NIDDM, HTN, CLBP who presented after recent travel with URI sx, asthma exacerbation and found to have CAP. Human metapneumovirus +, being r/o COVID though unlikely given low rates of co infection - Patient Problems (1) Viral pneumonia Current Visit: Yes Status: Acute Code(s): J12.9 - VIRAL PNEUMONIA, UNSPECIFIED SNOMED Code(s): 30882112 Comment: - Empiric coverage wit CTX, Day 4, and Azithro (d/c) - Can change to Amox Clauv for superimposed bacterial PNA in setting of + viral panel (2) Asthma Current Visit: Yes Status: Acute Code(s): J45.909 - UNSPECIFIED ASTHMA, UNCOMPLICATED SNOMED Code(s): 351376818 Comment: - On Duonebs, methylpred IV (change to PO Pred), on GI PPX - 1L NC, improving (3) Non-insulin dependent diabetes mellitus Current Visit: Yes Status: Acute Code(s): GVP4939 - SNOMED Code(s): 71284715 Comment: - Continue Metformin - Optimized on RUBEN, not on Statin (4) Hypertension Current Visit: Yes Status: Acute Code(s): I10 - ESSENTIAL (PRIMARY) HYPERTENSION SNOMED Code(s): 65772372 Comment: - Well controlled on RUBEN HCTZ (5) Chronic back pain Current Visit: Yes Status: Acute Code(s): M54.9 - DORSALGIA, UNSPECIFIED; G89.29 - OTHER CHRONIC PAIN SNOMED Code(s): 401621768 Comment: - Continue home angel, tylenol (6) DVT prophylaxis Current Visit: Yes Status: Acute Code(s): Z29.9 - ENCOUNTER FOR PROPHYLACTIC MEASURES, UNSPECIFIED SNOMED Code(s): 330393374 Comment: - LMWH (7) DNR (do not resuscitate) Current Visit: Yes Status: Acute Status and Disposition: Inpatient, transferred off unit, still in quarantine until COVID officialy back neg May be stable for discharge if we can wean O2 Diet Carb consistent PT OT not needed Dispo; To home
[2019-07-18] MEDS ORDERED: Amoxicillin/Clavulanate TAB* 875 MG PO ONE (09:10)
--- NOTE | 2019-07-18 14:15 | DS ---
CC: Dr. Freida Raymond DISCHARGE SUMMARY: DATE OF ADMISSION: 07/15/19 DATE OF DISCHARGE: 07/18/19 PRIMARY CARE PROVIDER: Dr. Freida Raymond. DISPOSITION AT THE TIME OF DISCHARGE: Stable to be discharged to home. PRIMARY DIAGNOSES: 1. Human metapneumovirus. 2. Asthma exacerbation. 3. Community-acquired pneumonia. SECONDARY DIAGNOSES: 1. Asthma, persistent with moderate control. 2. Hypertension. 3. Chronic low back pain. 4. Exy-cbnoshs-bimryyijt diabetes, well controlled. MEDICATIONS AT THE TIME OF DISCHARGE: 1. Lisinopril 40 mg p.o. daily. 2. Metformin 500 mg p.o. b.i.d. 3. Differin cream apply at bedtime. 4. Beclomethasone (QVAR) inhaler 1 puff inhaled b.i.d. 5. Beclomethasone (QNASL) intranasal spray b.i.d., 1 spray in each naris. 6. Vitamin D3 1000 units p.o. daily. 7. Diclofenac sodium topical apply as needed. 8. Epinephrine 0.15 mg IM x1 p.r.n. for anaphylaxis. 9. Levocetirizine 5 mg p.o. daily. 10. Metronidazole gel 1 application topical daily for rosacea. 11. Pataday drops 1 to 2 drops in both eyes b.i.d. 12. Scopolamine 1 patch transdermal q.72 hours p.r.n. for nausea. 13. Simvastatin 20 mg p.o. q.p.m. 14. Cyclobenzaprine 10 mg p.o. daily p.r.n. 15. Gabapentin 300 mg p.o. b.i.d. 16. Hydrochlorothiazide 25 mg p.o. daily. 17. Omeprazole 20 mg p.o. daily. 18. Prednisone 40 mg p.o. daily for an additional 3 days status post discharge and then stop. 19. Augmentin 875 mg p.o. b.i.d. for an additional 3 days status post discharge. 20. Albuterol/ipratropium nebulizer solution t.i.d. for an additional 3 days status post discharge a nd then wean as able for shortness of breath. 21. Guaifenesin 600 mg p.o. b.i.d. for an additional 3 days status post discharge as needed. Medication changes on this hospitalization were the addition of: 1. Augmentin. 2. Prednisone. 3. Guaifenesin. 4. P.r.n. nebulizers. HISTORY OF PRESENT ILLNESS AND HOSPITAL COURSE: This is a 73-year-old female with above past medical history, who presented to the emergency room after she returned from a trip to [facility] [place] where she was [place] and said that 2 weeks after returning from her trip she started having fevers , runny nose, sore throat, cough, and upper respiratory symptoms. She tried to treat at home for 10 days using supportive care, but continued to get so weak and so short of breath that she was urged by a family friend to present to the emergency room. Because of her travel history and long incubation time, she was put under investigation for novel coronavirus and initially admitted to the hospital f or community-acquired pneumonia, asthma exacerbation requiring 1 to 2 L of oxygen and hospitalist adm itted the patient under negative pressure room and her hospital course by problem is as follows: 1. Community-acquired pneumonia. The patient had left-sided infiltrate on her initial x-rays. She had no leukocytosis and labs were otherwise normal. She had mild oxygen requirement. She was starte d on ceftriaxone and Zithro and completed a course of azithromycin, continued on ceftriaxone and was continued on Augmentin at day of discharge for a total of 7 days of treatment. Her pneumonia seemed superimposed bacterial from a viral source initially given her prodrome and that was investigated as per below. 2. Possible viral source and rule out novel coronavirus. Respiratory viral panel and COVID testing were sent. The COVID did not come back by the day of discharge, though her respiratory viral panel d id show human metapneumovirus and our infectious disease team felt that it was most likely that her s ymptoms were secondary to human metapneumovirus, not coronavirus and that she was stable to be discha rged to home with self-isolation for a total of 14 days. Our infectious disease team will continue t o monitor her COVID testing, although our likelihood of suspicion is incredibly low. 3. Asthma exacerbation. The patient does have moderate persistent asthma at baseline and did have a n asthma exacerbation requiring nebulizers and prednisone. She improved significantly and was able to be weaned off oxygen by hospital day 4, was able to be discharged to home with home nebulizers and p rednisone. She has excellent inhaler technique and had no further questions. 4. Hypertension. Her home medications were continued. 5. Chronic pain. Her home medications were continued. 6. Fuj-lqeeaxz-pmcyzfmqs diabetes. Her home metformin was continued without complications. On the day of discharge, she is able to ambulate about her room without needing oxygen, tolerate diet . LABS AND STUDIES DONE DURING THIS HOSPITALIZATION: Labs on the day of discharge: White blood cell co unt 10.4, hemoglobin 13.1, hematocrit 38, and platelets 255. BMP shows sodium 134, potassium 3.8, chl oride 101, carbon dioxide 20, anion gap 13, BUN 35 and creatinine 1.1, glucose 183. Her hemoglobin A 1c was 6.7 in this hospitalization. LFTs were normal. Urinalysis was normal. Influenza A and B wer e normal. Human metapneumovirus was positive. COVID-19 is pending, although our suspicion is very l ow. Chest x-ray performed on 07/16/19 showed left infiltrate and subsequent x-ray on 07/17/19 showed no c hange. FAMILY LAWYER DURING THIS HOSPITALIZATION: Included Infectious Disease. ITEMS TO FOLLOW UP ON STATUS POST DISCHARGE: Improvement of her asthma exacerbation and viral pneumo vandana. The patient is discharged on appropriate treatment. She is aware to self-quarantine and is sta ble without oxygen at her baseline and safe to be discharged to home. She can follow with her primar care provider in the next 2 weeks as needed or call the office. Our infectious disease team will c loreta to follow her coronavirus testing and will contact her in the event that any changes need to be made. I did inform her that no news is generally good news. TIME SPENT ON THIS DISCHARGE: Forty minutes was spent on the planning of this discharge with over starks lf of that was spent directly at the bedside of the patient providing direct patient care. Plan of ca re was discussed with the patient, who has no further questions. If there are any questions about the care of this patient during this hospitalization, please do not hesitate to reach out and contact me directly, my cellphone is [phone]. [id number]/[facility] #: [id number]
== END 2019-07-18 12:30 | disposition home or self-care (01) | DRG 194 ==
LOC: ED 12:09 → ICU 15:07 → MED 07-17 16:35
PROVIDERS: ADMIT Internal Medicine; ATTEND Internal Medicine
DX: J12.3 Human metapneumovirus pneumonia (principal); J45.41 Moderate persistent asthma with (acute) exacerbation; I10 Essential (primary) hypertension; E11.9 Type 2 diabetes mellitus without complications; R09.02 Hypoxemia; G89.29 Other chronic pain; M54.5 Low back pain; I16.0 Hypertensive urgency; Z88.1 Allergy status to other antibiotic agents; Z88.8 Allergy status to other drugs, medicaments and biological substances; Z28.21 Immunization not carried out because of patient refusal; Z88.5 Allergy status to narcotic agent; Z90.710 Acquired absence of both cervix and uterus; Z79.899 Other long term (current) drug therapy; Z79.84 Long term (current) use of oral hypoglycemic drugs; Z03.818 Encounter for observation for suspected exposure to other biological agents ruled out
CPT/HCPCS: 0099U; 36415; 71045; 80048; 80053; 80076; 81003; 83036; 83735; 85025; 85027; 86140; 87040; 87899; 94640; 96365; 99285; A9270-GY; J0456; J0696; J1650; J2405; J2920; J7512

== ENCOUNTER 2019-09-15 11:50 | Inpatient (IN) ==
[2019-09-15] MEDS ORDERED: Magnesium Hydroxide LIQ 30 ML UDC PO PRN (15:45)
[2019-09-15] MEDS ORDERED: Senna TAB 8.6 mg TAB PO PRN (15:45)
[2019-09-15] MEDS: Mometasone 220 MCG MDI INH SCH (18:39)
[2019-09-15] MEDS: Heparin 5000 UNITS/ML 1 mL VIAL SUBCUT SCH (21:32)
[2019-09-16] MEDS: Heparin 5000 UNITS/ML 1 mL VIAL SUBCUT SCH ×3 (05:31→21:08)
[2019-09-16] MEDS: Aspirin EC 81 mg TAB.EC (enteric coated) PO SCH (09:48)
[2019-09-16] MEDS: Mometasone 220 MCG MDI INH SCH (17:27)
[2019-09-17 05:45] LABS: ABS Basophils 0.1 10^3/ul (0-0.2); ABS Eosinophils 0.2 10^3/ul (0-0.6); ABS Lymphocytes 2.7 10^3/ul (1.0-4.8); ABS Monocytes 0.4 10^3/ul (0-0.8); Eosinophil % 2.8 %; Hematocrit 37 % (35-47); Lymphocyte % 44.6 %; Mean Corpuscular HGB Conc 35 g/dL (31-36); Mean Corpuscular Hemoglobin 31 pg (27-31); Mean Corpuscular Volume 88 fL (80-97); Nucleated Red Blood Cells % 0.3; Platelet Count 228 10^3/uL (150-450); Red Blood Count 4.24 10^6 /uL (3.70-4.87); Red Cell Distribution Width 14 % (10-15)
[2019-09-17 06:01] LABS: Albumin 3.9 g/dL (3.2-5.2); Albumin/Globulin Ratio 1.9 (1-3); BUN/Creatinine Ratio 14.5 (8-20); Calcium 9.3 mg/dL (8.6-10.3); EGFR Non-African American 67.8 (>60); Globulin 2.1 g/dL (2-4); Potassium 4.1 mmol/L (3.5-5.0); Total Bilirubin 1.3 mg/dL (0.2-1.0)
[2019-09-17] MEDS: Heparin 5000 UNITS/ML 1 mL VIAL SUBCUT SCH ×2 (06:23→14:38)
[2019-09-17] MEDS: Aspirin EC 81 mg TAB.EC (enteric coated) PO SCH (09:03)
[2019-09-17] MEDS: Mometasone 220 MCG MDI INH SCH (17:22)
[2019-09-18] MEDS: Heparin 5000 UNITS/ML 1 mL VIAL SUBCUT SCH ×2 (08:42→20:24)
[2019-09-18] MEDS: Aspirin EC 81 mg TAB.EC (enteric coated) PO SCH (08:42)
[2019-09-18] MEDS: Mometasone 220 MCG MDI INH SCH (18:21)
[2019-09-19] MEDS: Heparin 5000 UNITS/ML 1 mL VIAL SUBCUT SCH ×2 (08:30→20:01)
[2019-09-19] MEDS: Aspirin EC 81 mg TAB.EC (enteric coated) PO SCH (08:30)
[2019-09-19] MEDS: Mometasone 220 MCG MDI INH SCH (17:21)
[2019-09-20] MEDS: Heparin 5000 UNITS/ML 1 mL VIAL SUBCUT SCH ×2 (09:27→20:53)
[2019-09-20] MEDS: Aspirin EC 81 mg TAB.EC (enteric coated) PO SCH (09:27)
[2019-09-20] MEDS: Mometasone 220 MCG MDI INH SCH (17:14)
[2019-09-21] MEDS: Heparin 5000 UNITS/ML 1 mL VIAL SUBCUT SCH ×2 (07:38→20:54)
[2019-09-21] MEDS: Aspirin EC 81 mg TAB.EC (enteric coated) PO SCH (07:39)
[2019-09-21] MEDS: Mometasone 220 MCG MDI INH SCH (18:18)
[2019-09-22] MEDS: Aspirin EC 81 mg TAB.EC (enteric coated) PO SCH (08:11)
[2019-09-22] MEDS: Heparin 5000 UNITS/ML 1 mL VIAL SUBCUT SCH ×2 (08:13→20:48)
[2019-09-22] MEDS: Mometasone 220 MCG MDI INH SCH (17:37)
[2019-09-23 05:54] VITALS: BP 142/54
[2019-09-23] MEDS: Aspirin EC 81 mg TAB.EC (enteric coated) PO SCH (07:27)
[2019-09-23] MEDS: Heparin 5000 UNITS/ML 1 mL VIAL SUBCUT SCH (07:30)
== END 2019-09-23 13:35 | disposition home health service (06) | DRG 57 ==
LOC: PMRU 14:20
PROVIDERS: ADMIT Physical Medicine & Rehabilitation; ATTEND Physical Medicine & Rehabilitation

== ENCOUNTER 2023-11-16 21:04 | Inpatient (IN) ==
[2023-11-16] MEDS: Droperidol 5 MG/2 ML 2 ML VIAL IV ONE (21:43)
[2023-11-16] MEDS: Lactated Ringers 1000 ml BAG 1,000 ML IV ONE (21:43)
[2023-11-16] MEDS: Ondansetron 4 mg VIAL 2 MG/ML 2 ml VIAL IV ONE (21:43)
[2023-11-16 21:52] LABS: ABS Basophils 0.1 10^3/uL (0.0-0.1); ABS Lymphocytes 4.7 10^3/uL (1.0-4.8); ABS Monocytes 0.4 10^3/uL (0.0-0.9); ABS Neutrophils 8.3 10^3/uL (1.5-7.6); ABS Nucleated RBC 0.02 10^3/ul; Hematocrit 46.4 % (35-45); Hemoglobin 15.5 g/dL (11.5-14.3); Lymphocyte % 35.1 %; Mean Corpuscular Hemoglobin 29.8 pg (27-33); Mean Corpuscular Hgb Conc 33.5 g/dL (31-36); Mean Corpuscular Volume 89.1 fL (80-97); Mean Platelet Volume 8.9 fL (7.5-11.2); Nucleated Red Blood Cells % 0.2 %/100WBC (0.0-0.8); Platelet Count 265 10^3/uL (150-450); Red Blood Count 5.21 10^6/uL (3.63-4.92); Red Cell Distribution Width 13.4 % (12-17); White Blood Count 13.5 10^3/uL (3.8-11.8)
[2023-11-16 22:38] LABS: Albumin 4.5 g/dL (3.2-5.2); Albumin/Globulin Ratio 1.8 (1-3); C Reactive Protein 5.09 mg/L (<8.01); Calcium 9.3 mg/dL (8.6-10.3); Creatinine, Serum 0.86 mg/dL (0.51-0.95); Globulin 2.5 g/dL (2-4); Magnesium 1.3 mg/dL (1.9-2.7); Potassium 4.2 mmol/L (3.5-5.0); Total Bilirubin 1.1 mg/dL (0.2-1.0)
[2023-11-16 23:36] LABS: High Sensitivity Troponin 1 Hr 283 pg/mL (<15)
[2023-11-17] MEDS ORDERED: Albuterol HFA INHALER 8 gm MDI INH PRN (04:22)
[2023-11-17 05:08] LABS: Urine Appearance Turbid; Urine Bilirubin Negative (Negative); Urine Blood Negative (Negative); Urine Color Light-Yellow; Urine Glucose Negative (Negative); Urine Ketones 1+ (Negative); Urine Nitrite Negative (Negative); Urine Protein Trace (Negative); Urine Specific Gravity 1.019 (1.002-1.030); Urine Urobilinogen Negative (Negative); Urine pH 5.5 (5.0-8.0)
[2023-11-17] MEDS: NS 0.9% 1000 ml BAG 1,000 ML IV SCH (05:09)
[2023-11-17] MEDS: Magnesium Sulfate 2 gm BAG 2 GM/50 ML BAG IVPB ONE (05:12)
[2023-11-17] MEDS: Aspirin EC 81 mg TAB.EC (enteric coated) PO SCH (09:52)
[2023-11-18] MEDS: Ondansetron 4 mg VIAL 2 MG/ML 2 ml VIAL IV PRN (05:06)
[2023-11-18] MEDS: Acetaminophen IV 1 GM/100ML 1,000 MG/100 ML BAG IV ONE (05:07)
[2023-11-18] MEDS: NS 0.9% 1000 ml BAG 1,000 ML IV ONE (05:16)
[2023-11-18 06:13] LABS: ABS Basophils 0.1 10^3/uL (0.0-0.1); ABS Eosinophils 0.1 10^3/uL (0.0-0.5); ABS Lymphocytes 4.5 10^3/uL (1.0-4.8); ABS Monocytes 0.7 10^3/uL (0.0-0.9); ABS Neutrophils 8.4 10^3/uL (1.5-7.6); ABS Nucleated RBC 0.01 10^3/ul; Eosinophil % 0.4 %; Hematocrit 42.3 % (35-45); Lymphocyte % 32.5 %; Mean Corpuscular Hemoglobin 29.7 pg (27-33); Mean Corpuscular Hgb Conc 33.2 g/dL (31-36); Mean Corpuscular Volume 89.6 fL (80-97); Nucleated Red Blood Cells % 0.1 %/100WBC (0.0-0.8); Platelet Count 234 10^3/uL (150-450); Red Blood Count 4.72 10^6/uL (3.63-4.92); Red Cell Distribution Width 13.1 % (12-17); White Blood Count 13.7 10^3/uL (3.8-11.8)
[2023-11-18 06:26] LABS: Calcium 8.8 mg/dL (8.6-10.3); Creatinine, Serum 0.75 mg/dL (0.51-0.95); Magnesium 1.7 mg/dL (1.9-2.7); eGFR CKD-EPI 82.5 (>60)
[2023-11-18] MEDS ORDERED: Zosyn per Pharmacy NOTE FOLLOW UP SCH (08:00)
[2023-11-18] MEDS: Piperacillin/Tazobac 3.375 BAG 3.375 GM/100 ML BAG IV ONE (08:07)
[2023-11-18] MEDS: Magnesium Sulfate 2 gm BAG 2 GM/50 ML BAG IVPB ONE (09:27)
[2023-11-18 12:24] LABS: Urine Appearance Clear; Urine Bilirubin Negative (Negative); Urine Blood Negative (Negative); Urine Color Light-Yellow; Urine Glucose Negative (Negative); Urine Ketones 1+ (Negative); Urine Nitrite Negative (Negative); Urine Protein Negative (Negative); Urine Specific Gravity 1.024 (1.002-1.030); Urine Urobilinogen Negative (Negative); Urine pH 5.5 (5.0-8.0)
[2023-11-18] MEDS: ZOSYN 3.375 GM Q8H per EXTENDED INFUSION IV SCH (13:02)
[2023-11-18] MEDS: Morphine 2 MG/ML SYRINGE IV ONE (18:15)
[2023-11-19 06:35] LABS: ABS Basophils 0.1 10^3/uL (0.0-0.1); ABS Lymphocytes 4.4 10^3/uL (1.0-4.8); ABS Neutrophils 7.2 10^3/uL (1.5-7.6); ABS Nucleated RBC 0.01 10^3/ul; Eosinophil % 0.4 %; Hematocrit 38.9 % (35-45); Hemoglobin 13.1 g/dL (11.5-14.3); Lymphocyte % 34.7 %; Mean Corpuscular Hemoglobin 29.8 pg (27-33); Mean Corpuscular Hgb Conc 33.6 g/dL (31-36); Mean Corpuscular Volume 88.5 fL (80-97); Mean Platelet Volume 9.1 fL (7.5-11.2); Nucleated Red Blood Cells % 0.1 %/100WBC (0.0-0.8); Platelet Count 232 10^3/uL (150-450); Red Blood Count 4.39 10^6/uL (3.63-4.92); Red Cell Distribution Width 12.7 % (12-17); White Blood Count 12.6 10^3/uL (3.8-11.8)
[2023-11-19 06:51] LABS: Calcium 8.3 mg/dL (8.6-10.3); Creatinine, Serum 0.8 mg/dL (0.51-0.95); Potassium 3.7 mmol/L (3.5-5.0); eGFR CKD-EPI 76.3 (>60)
[2023-11-19] MEDS: hydrALAZINE 20 mg/ml 1 ML Vial IV IV SLOW PU ONE (14:07)
[2023-11-19 14:18] LABS: Activated Partial Thrombo Time 29.8 seconds (26.0-38.0); INR 0.99 (0.83-1.13)
[2023-11-19] MEDS: niCARdipine 0.1MG/ML IVPREMIX 20 MG/200 ML BAG IV SCH ×2 (15:06→16:27)
[2023-11-19] MEDS: Iodixanol (CONTRAST) 320 MG/ML 100 ML SDV IV ONE (16:11)
[2023-11-19] MEDS: SODIUM CHLORIDE 3% IV ONE (16:34)
[2023-11-19] MEDS: HYPERTONIC IV ONE (16:34)
[2023-11-19] MEDS ORDERED: hydrALAZINE 20 mg/ml 1 ML Vial IV IV SLOW PU PRN (17:00)
[2023-11-19 21:01] LABS: Calcium 8.3 mg/dL (8.6-10.3); Creatinine, Serum 0.69 mg/dL (0.51-0.95); Potassium 3.4 mmol/L (3.5-5.0); eGFR CKD-EPI 89.9 (>60)
[2023-11-19 21:02] LABS: Urine Appearance Clear; Urine Bilirubin Negative (Negative); Urine Blood Negative (Negative); Urine Color Light-Yellow; Urine Glucose Negative (Negative); Urine Ketones 2+ (Negative); Urine Nitrite Negative (Negative); Urine Protein Negative (Negative); Urine Specific Gravity 1.039 (1.002-1.030); Urine Urobilinogen Negative (Negative); Urine pH 5.5 (5.0-8.0)
[2023-11-19 22:07] VITALS: BP 135/57
[2023-11-19 22:25] LABS: Calcium 8.3 mg/dL (8.6-10.3); Creatinine, Serum 0.67 mg/dL (0.51-0.95); Potassium 3.6 mmol/L (3.5-5.0); eGFR CKD-EPI 90.5 (>60)
[2023-11-20] MEDS ORDERED: Propofol 10 mg/ml 100 ML BTL 1,000 MG/100 ML BTL ONE (00:43)
[2023-11-21 08:06] LABS: RBC Parasite Smear No Parasites Seen (No Parasite)
[2023-11-21 16:15] LABS: Anaplasma phagocytophilum Negative (Negative); B. miyamotoi PCR, B Negative (Negative); Babesia divergens/MO-1 Negative (Negative); Babesia ducani Negative (Negative); Ehrlichia chaffeensis Negative (Negative); Ehrlichia ewingii/canis Negative (Negative); Ehrlichia muris eauclairensis Negative (Negative)
== END 2023-11-19 22:27 | disposition short-term general hospital (02) | DRG 64 ==
LOC: ED 21:04 → EDHOLD 21:04 → SUATTDRO 11-17 02:54 → SSU 11-17 08:00 → ICU 11-19 12:18
PROVIDERS: ADMIT Internal Medicine; ATTEND Student in an Organized Health Care Education/Training Program

== ENCOUNTER 2023-11-28 07:12 | Inpatient (IN) ==
[2023-11-28] MEDS ORDERED: Magnesium Hydroxide LIQ 30 ML UDC PO PRN (15:59)
[2023-11-28] MEDS ORDERED: Senna TAB 8.6 mg TAB PO PRN (15:59)
[2023-11-28 20:20] LABS: Urine Appearance Clear; Urine Bilirubin Negative (Negative); Urine Blood Trace (Negative); Urine Color Yellow; Urine Glucose Negative (Negative); Urine Ketones Trace (Negative); Urine Nitrite Negative (Negative); Urine Protein Negative (Negative); Urine Specific Gravity 1.016 (1.002-1.030); Urine Urobilinogen Negative (Negative)
[2023-11-28 20:32] LABS: Urine Bacteria Absent /HPF (Absent); Urine Red Blood Cell 1+(3-5/hpf) /HPF (0-Trace); Urine Squamous Epithelial Cell Present /HPF (Absent); Urine White Blood Cell Trace(0-5/hpf) /HPF (0-Trace)
[2023-11-28] MEDS: Amoxicillin/Clavul 500/125 TAB (Augmentin 500 mg tab) PO SCH (22:02)
[2023-11-28] MEDS: Heparin 5000 UNITS/ML 1 mL VIAL SUBCUT SCH (22:05)
[2023-11-29] MEDS: Aspirin EC 81 mg TAB.EC (enteric coated) PO SCH (09:47)
[2023-11-30 06:42] LABS: ABS Basophils 0.1 10^3/uL (0.0-0.1); ABS Eosinophils 0.3 10^3/uL (0.0-0.5); ABS Monocytes 0.7 10^3/uL (0.0-0.9); ABS Neutrophils 4.3 10^3/uL (1.5-7.6); ABS Nucleated RBC 0.02 10^3/ul; Hematocrit 39.7 % (35-45); Hemoglobin 13.2 g/dL (11.5-14.3); Lymphocyte % 48.2 %; Mean Corpuscular Hemoglobin 29.7 pg (27-33); Mean Corpuscular Hgb Conc 33.3 g/dL (31-36); Mean Corpuscular Volume 89.3 fL (80-97); Mean Platelet Volume 8.9 fL (7.5-11.2); Nucleated Red Blood Cells % 0.2 %/100WBC (0.0-0.8); Platelet Count 312 10^3/uL (150-450); Red Blood Count 4.45 10^6/uL (3.63-4.92); White Blood Count 10.4 10^3/uL (3.8-11.8)
[2023-11-30 07:09] LABS: Albumin 3.6 g/dL (3.2-5.2); Albumin/Globulin Ratio 1.7 (1-3); Calcium 9.1 mg/dL (8.6-10.3); Creatinine, Serum 0.68 mg/dL (0.51-0.95); Globulin 2.1 g/dL (2-4); Potassium 4.2 mmol/L (3.5-5.0); Total Bilirubin 0.9 mg/dL (0.2-1.0); Total Protein 5.7 g/dL (6.4-8.9); eGFR CKD-EPI 90.2 (>60)
[2023-12-07 06:44] VITALS: BP 103/45
[2023-12-07 06:45] LABS: Hemoglobin 12.9 g/dL (11.5-14.3); Mean Corpuscular Hemoglobin 30.1 pg (27-33); Mean Corpuscular Hgb Conc 33.9 g/dL (31-36); Mean Corpuscular Volume 88.7 fL (80-97); Platelet Count 260 10^3/uL (150-450); Red Blood Count 4.29 10^6/uL (3.63-4.92); Red Cell Distribution Width 12.8 % (12-17); White Blood Count 8.5 10^3/uL (3.8-11.8)
[2023-12-07 07:19] LABS: Albumin 3.7 g/dL (3.2-5.2); Albumin/Globulin Ratio 2.1 (1-3); Creatinine, Serum 1.04 mg/dL (0.51-0.95); Globulin 1.8 g/dL (2-4); Potassium 3.8 mmol/L (3.5-5.0); Total Bilirubin 1.1 mg/dL (0.2-1.0); Total Protein 5.5 g/dL (6.4-8.9); eGFR CKD-EPI 55.7 (>60)
[2023-12-07 07:35] LABS: ABS Basophils 0.1 10^3/uL (0.0-0.1); ABS Eosinophils 0.2 10^3/uL (0.0-0.5); ABS Lymphocytes 5.4 10^3/uL (1.0-4.8); ABS Monocytes 0.5 10^3/uL (0.0-0.9); ABS Neutrophils 2.3 10^3/uL (1.5-7.6); ABS Nucleated RBC 0.01 10^3/ul; Eosinophil % 2.7 %; Lymphocyte % 64.1 %; Nucleated Red Blood Cells % 0.1 %/100WBC (0.0-0.8)
== END 2023-12-07 14:05 | disposition home or self-care (01) | DRG 64 ==
LOC: PMRU 14:33
PROVIDERS: ADMIT Physical Medicine & Rehabilitation; ATTEND Physical Medicine & Rehabilitation